=== PATIENT | female | born 1995 | race Caucasian/White ===

== ENCOUNTER 2022-05-17 04:13 | Emergency (ER) | payer BC, OTHER ==
[~2022-05-17] VITALS: Ht 167.6 cm; Wt 87.6 kg
[2022-05-17 04:52] LABS: Urine Bacteria FEW /hpf (None Seen); Urine Blood Negative /uL (Negative); Urine Mucus FEW (None Seen); Urine Specific Gravity 1.015 (1.001-1.035); Urine WBC 2 /hpf (0 - 5)
[2022-05-17 05:12] LABS: Basophils # (auto) 0 10 ^3/uL (0-0.2); Basophils % (auto) 0.4 % (0.0-2.0); Eosinophils # (auto) 0.1 10 ^3/uL (0-0.8); Eosinophils % (auto) 0.8 % (0.0-7.0); Hematocrit 37.5 % (36.0-46.0); Hemoglobin 12.5 g/dL (12.2-16.2); Lymphocytes # (auto) 2.9 10 ^3/uL (0.4-5.4); Lymphocytes % (auto) 31.2 % (10.0-50.0); Mean Corpuscular Hemoglobin 29.7 pg (28.0-32.0); Mean Corpuscular Hgb Conc. 33.2 g/dL (32.0-36.0); Mean Corpuscular Volume 89.6 fL (80.0-100.0); Monocytes # (auto) 0.7 10 ^3/uL (0-1.3); Monocytes % (auto) 7.8 % (0.0-12.0); Neutrophils # (auto) 5.6 10 ^3/uL (1.6-8.6); Neutrophils % (auto) 59.8 % (37.0-80.0); Red Blood Cells 4.19 10^6/uL (4.0-5.20); White Blood Cell 9.4 10^3/uL (4.4-10.8)
[2022-05-17 05:26] LABS: Albumin 3.5 g/dL (3.4-5.0); Calcium 8.8 mg/dL (8.5-10.1); Potassium 3.5 mmol/L (3.5-5.1)
[2022-05-17 05:29] LABS: BUN/Creatinine Ratio 12.7; Bilirubin, Total 0.2 mg/dL (0.2-1.0); Total Protein 7.4 g/dL (6.4-8.2)
[2022-05-17] MEDS ORDERED: IBU600T PO (08:20)
[2022-05-17 09:28] VITALS: BP 129/57
== END 2022-05-17 08:42 | disposition home or self-care (01) ==
LOC: ER 04:13
DX: R10.9 Unspecified abdominal pain (principal); F41.9 Anxiety disorder, unspecified; M79.10 Myalgia, unspecified site
CPT/HCPCS: 36415; 71045; 80053; 81001; 81025; 82150; 83690; 85025

== ENCOUNTER 2023-07-24 12:51 | Emergency (ER) | payer BC ==
[~2023-07-24] VITALS: Ht 167.6 cm; Wt 100.1 kg
[~2023-07-24 12:51] MED LIST: IBU600T PO
[2023-07-24 13:05] VITALS: BP 133/80; PULSE 91; RESP 18; O2SAT 99
[2023-07-24] MEDS ORDERED: IBUP-1454 PO (19:45)
[2023-07-24] MEDS ORDERED: ESCI10TA PO (19:45)
== END 2023-07-24 21:47 | disposition left against medical advice (07) ==
LOC: ER 12:51
DX: S50.311A Abrasion of right elbow, initial encounter (principal); F41.9 Anxiety disorder, unspecified; F32.1 Major depressive disorder, single episode, moderate; F10.129 Alcohol abuse with intoxication, unspecified; Z53.29 Procedure and treatment not carried out because of patient's decision for other reasons; Y93.89 Activity, other specified; Y92.89 Other specified places as the place of occurrence of the external cause; Y99.8 Other external cause status
CPT/HCPCS: 73030; 73080

== ENCOUNTER 2025-06-19 15:27 | Emergency (ER) | payer OTHER, BC ==
[~2025-06-19] VITALS: Ht 167.6 cm; Wt 91.3 kg
[~2025-06-19 15:27] MED LIST changes: +ESCI10TA PO; +IBUP-1454 PO
--- NOTE | 2025-06-19 15:49 | ED.PDOC ---
History of Present Illness HPI Comments 29 y/o F, with PMHx of anxiety presents to the ED for CC of s/p chemical exposure to left eye. 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 Patient states she did significant irrigation of the e ye prior to arrival. Patient denies blurred vision, itchiness, or photophobia. No other symptoms or modifying factors are present at this time. Patient declined any pain medication. Eye was unremarkable at initial evaluation. Chief Complaint: Eye Problem Time Seen by MD: 15:45 Primary Care Provider: KENNETH Reviewed Notes: Nurses Notes, Medications, Allergies Allergies: Coded Allergies: NO KNOWN ALLERGIES (Unverified , 05/17/22) Home Meds Active Scripts Escitalopram Oxalate (Lexapro) 10 Mg Tab, 1 TAB PO DAILY, #30 TAB 3 Refills Prov:YANNA BLACKBURNP 07/24/23 Ibuprofen (Ibuprofen) 600 Mg Tab, 1 TAB PO TID, #60 TAB Prov:YANNA BLACKBURN 07/24/23 Ibuprofen Micronized (MOTRIN TABLET) 600 Mg Tb, 600 MG PO TID PRN for 5 Days, #15 TAB *Black box warning-NSAIDS can increase risk of UT & hypertension, GI irritation, ulceration, bleed, perferation. Do not use post cardiac surgery. Use short duration/lowest effective dose. Prov:KEAGAN CHOWDARY MD 05/17/22 Information Source: Patient Mode of Arrival: Ambulatory Severity: Moderate Timing: Minutes Duration: Since onset Prehospital treatment: None Past Medical History PAST MEDICAL HISTORY: Anxiety Surgical History: Denies all surgeries DINING SERVICES DIRECTOR History: No Pertinent DINING SERVICES DIRECTOR History Family History Family History: Unknown, Unobtainable Social History Smoker: Non-Smoker Alcohol: Heavy Drugs: Denies Drug Use Lives In: Home Constitutional: denies: chills, diaphoresis, fatigue, fever, malaise, sweats, weakness, others EENTM: reports: eye pain, others (Left eye chemical exposure); denies: blurred vision, double vision, ear bleeding, ear discharge, ear drainage, ear pain, ear ringing, eye redness, hearing loss, mouth pain, mouth swelling, nasal discharge, nose bleeding, nose congestion, nose pain, photophobia, tearing, throat pain, throat swelling, voice changes Respiratory: denies: cough, hemoptysis, orthopnea, SOB at rest, shortness of breath, SOB with excertion, stridor, wheezing, others Cardiovascular: denies: chest pain, dizzy spells, diaphoresis, Dyspnea on exertion, edema, irregular heart beat, left arm pain, lightheadedness, palpitations, PND, syncope, others Gastrointestinal: denies: abdomen distended, abdominal pain, blood streaked bowels, constipated, diarrhea, dysphagia, difficulty swallowing, hematemesis, melena, nausea, poor appetite, poor fluid intake, rectal bleeding, rectal pain, vomiting, others Genitourinary: denies: abnormal vagina bleeding, burning, dyspareunia, dysuria, flank pain, frequency, hematuria, incontinence, pain, , vagina discharge, urgency, others Neurological: denies: dizziness, fainting, headache, left sided numbness, left sided weakness, numbness, paresthesia, pre-existing deficit, right sided numbness, right sided weakness, seizure, speech problems, tingling, tremors, weakness, others Musculoskeletal: denies: back pain, gout, joint pain, joint swelling, muscle pain, muscle stiffness, neck pain, others Integumetry: denies: bruises, change in color, change in hair/nails, dryness, laceration, lesions, lumps, rash, wounds, others Allergic/Immunocompromised: denies: Difficulty Healing, Frequent Infections, Hives, Itching, others Hematologic/Lymphatic: denies: anemia, blood clots, easy bleeding, easy bruising, swollen glands, others Endocrine: denies: excessive hunger, excessive sweating, excessive thirst, excessive urination, flushing, intolerance to cold, intolerance to heat, unexplained weight gain, unexplained weight loss, others Psychiatric: denies: anxiety, bipolar disorder, depression, hopeless, panic disorder, schizophrenia, sleepless, suicidal, others All Other Systems: Reviewed and Negative Physical Exam General Appearance: Mild Distress (Patient was only in moderate distress at time of evaluation. Patient declined the need for any pain medication.), Obese HEENT: Other (Unremarkable left eye evaluation. No signs of trauma. No scleral injection. No change in vision.) Neck: Full Range of Motion, Non-Tender, Normal, Normal Inspection Respiratory: Chest Non-Tender, Lungs Clear, No Accessory Muscle Use, No Respiratory Distress, Normal Breath Sounds Cardiovascular: No Edema, No JVD, No Murmur, No Gallop, Normal Peripheral Pulses, Regular Rate/Rhythm Breast Exam: Deferred Gastrointestinal: No Organomegaly, Non Tender, No Pulsatile Mass, Normal Bowel Sounds, Soft Genitalia: Deferred Pelvic: Deferred Rectal: Deferred Extremities: No calf tenderness, Normal capillary refill, Normal inspection, Normal range of motion, Non-tender, No pedal edema Neurologic: Alert, No Motor Deficits, Normal Affect, Normal Mood, No Sensory Deficits Cerebellar Function: NOT DONE Reflexes: NOT DONE Skin: Dry, Normal Color, Warm Lymphatic: No Adenopathy Was a procedure done? Was a procedure done?: No Differential Dx Considerations may include: Chemical exposure of the left eye, corneal burn X-Ray, Labs, Meds, VS Vital Signs Date Time Temp Pulse Resp B/P (MAP) Pulse Ox O2 Delivery O2 Flow Rate FiO2 06/19/25 15:30 98.1 62 16 119/82 100 98.1 X-Ray, Labs, Meds, VS Comment Spent time discussing the injury with the patient. Advised with the patient that required no additional intervention. I will send the patient home with a prescription for antibiotic eyedrops to use in the next few days to stave off any infective components. Patient should follow up with Ophthalmology in the next day or two for definitive re-evaluation. Pain medication as needed. Time of 1ST Reevaluation: 16:10 Reevaluation 1ST: Unchanged Consultation: PCP, Other (Ophthalmology) Patient Education/Counseling: Diagnosis, Treatment Family Education/Counseling: Diagnosis, Treatment, No Family Present SEPSIS Sepsis Screen Date sepsis recognized/suspect: Jun 19, 2025 Time Sepsis recognized/suspect: 1531 Recent Procedure: No On Antibiotic Therapy: No Respiratory Rate >20: No Heart Rate >90: No Temp<36 C (96.8 F) or >38.3 C: No SBP <90 or MAP <65 mmHG: No New Acute Mental Status Change: No Is the patient on CPAP, BIPAP,: No Vital Signs Date Time Temp Pulse Resp B/P (MAP) Pulse Ox O2 Delivery O2 Flow Rate FiO2 06/19/25 15:30 98.1 62 16 119/82 100 98.1 Departure 1 Departure Time of Disposition: 16:11 Impression: Primary Impression: Chemical exposure of eye Disposition: HOME / SELF CARE / HOMELESS Condition: Stable Additional Instructions: Advise utilizing antibiotic eyedrops as directed for the next few days. Pain medication as needed. Patient should follow up with Ophthalmology in the next day or two for definitive evaluation. e-Prescriptions Ibuprofen Micronized (Ibuprofen) 800 Mg Tab 800 MG PO Q8HP PRN, #15 TAB Prov: ISAIAS BUNDY 06/19/25 Azithromycin (Ophth) (Azasite) 1 % Lillie 2 DROP EACHEYE BID for 3 Days, #2.5 ML 0 Refills Prov: ISAIAS BUNDY 06/19/25 Discharged With: Self, Friend Critical Care Note Critical Care Time?: No Stability Stability form required: No Heart Score Heart Score: Heart Score Response (Comments) Value History N/A 0 EKG N/A 0 Age N/A 0 Risk Factors N/A 0 Troponin N/A 0 Total 0 I personally scribed for ISAIAS BUNDY PAC ([email or web address]) on 06/19/25 at 15:49. El ectronically submitted by Suzan Corona ([email or web address]). I personally scribed for ISAIAS BUNDY PAC ([email or web address]) on 06/19/25 at 15:57. Elect ronically submitted by Suzan Corona ([email or web address]). ISAIAS BUNDY PAC Jun 19, 2025 15:49
[2025-06-19] MEDS ORDERED: IBUP-1455 PO (16:12)
[2025-06-19] MEDS ORDERED: AZIT4SOL EACHEYE (16:12)
[2025-06-19 18:29] VITALS: BP 117/67; PULSE 70; RESP 20; TEMP 98.7; O2SAT 99
== END 2025-06-19 18:30 | disposition home or self-care (01) ==
LOC: ER 15:30
DX: Z77.098 Contact with and (suspected) exposure to other hazardous, chiefly nonmedicinal, chemicals (principal); Z79.899 Other long term (current) drug therapy